=== PATIENT | male | born 1960 ===

== ENCOUNTER 2021-08-16 05:35 | Day surgery (SDC) | payer OTHER | END 2021-08-16 12:10 | disposition home or self-care (01) | LOC: AMB-ENDOS 05:35 | PROVIDERS: ATTEND Surgery | DX: K50.118 Crohn's disease of large intestine with other complication (principal); K50.111 Crohn's disease of large intestine with rectal bleeding; K56.49 Other impaction of intestine; K62.4 Stenosis of anus and rectum; Z20.822 Contact with and (suspected) exposure to COVID-19 ==